=== PATIENT | male | born 2000 | race Caucasian/White ===

== ENCOUNTER 2021-02-07 00:15 | Emergency (ER) | payer OTHER ==
[~2021-02-07] VITALS: Ht 178 cm; Wt 75.0 kg
[2021-02-07 00:29] VITALS: BP 140/90
[2021-02-07] MEDS ORDERED: DEXM5TAB3 (00:29)
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
== END 2021-02-07 01:38 | disposition home or self-care (01) ==
LOC: ER 00:19
DX: S01.81XA Laceration without foreign body of other part of head, initial encounter (principal); S60.511A Abrasion of right hand, initial encounter; S60.512A Abrasion of left hand, initial encounter; V00.841A Fall from standing electric scooter, initial encounter
CPT/HCPCS: 12011

== ENCOUNTER 2021-03-05 23:54 | Emergency (ER) | payer OTHER ==
[~2021-03-05] VITALS: Ht 177.8 cm; Wt 75.0 kg
[~2021-03-05 23:54] MED LIST: DEXM5TAB3
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
[2021-03-06] MEDS ORDERED: HYDROcodone/APAP 7.5 MG/325 MG (LORTAB, LORCET PLUS) TABLET PO ONE (02:15)
[2021-03-06] MEDS ORDERED: HYDR-87 PO (02:23)
[2021-03-06 03:13] VITALS: BP 122/70
--- NOTE | 2021-03-06 06:43 | Diagnostic Imaging Report ---
HISTORY: Bimalleolar fracture TECHNIQUE: 3 views of the right foot COMPARISON: None FINDINGS: There are fractures of the distal tibia and fibula, better seen on concurrent radiographs. There is a subtle nondisplaced fracture of the right 4th metatarsal head with slight lateral angulation.. Alignment otherwise appears normal. Joint spaces are preserved. IMPRESSION: 1. Nondisplaced fracture of the right 4th metatarsal head. 2. Fractures of the distal right tibia and fibula are described on concurrent radiographs. Dictated by: Dictated on workstation # [id number]
--- NOTE | 2021-03-06 06:45 | Diagnostic Imaging Report ---
HISTORY: Right ankle pain COMPARISON: None FINDINGS: Three views of the right ankle demonstrate a moderately posteriorly displaced slightly medially angulated oblique fracture of the distal right fibula diametaphysis, with the distal edge of the fracture located about 3.4 cm proximal to the tibiotalar joint. There is a transverse fracture of the medial malleolus with mild anterior and lateral displacement. There is mild lateral subluxation of the talus relative to the tibia with widening of the medial clear space by 9 mm. A posterior malleolus fracture is not seen. There is soft tissue swelling about the right ankle, medial more than lateral. There is a small tibiotalar joint effusion. IMPRESSION: 1. Displaced fractures of the right medial malleolus and the distal right fibula diaphysis, with mild lateral subluxation at the tibiotalar joint. 2. Small tibiotalar joint effusion with surrounding soft tissue edema. Dictated by: Dictated on workstation # [id number]
--- NOTE | 2021-03-06 06:46 | Diagnostic Imaging Report ---
HISTORY: Right lower leg pain, bimalleolar fracture TECHNIQUE: 2 views of the right tibia/fibula. COMPARISON: None FINDINGS: Fractures of the distal right tibia and fibula are described on the ankle radiographs. No fracture is seen of the proximal tibia and fibula. Alignment at the knee appears to be normal. IMPRESSION: 1. Fractures of the distal right tibia and fibula are described on the concurrent ankle radiographs. No proximal tibia/fibula fractures are seen. Dictated by: Dictated on workstation # [id number]
== END 2021-03-06 03:13 | disposition home or self-care (01) ==
LOC: EDUNIT# 23:54 → ER 23:57
DX: S82.841A Displaced bimalleolar fracture of right lower leg, initial encounter for closed fracture (principal); F17.290 Nicotine dependence, other tobacco product, uncomplicated; X50.1XXA Overexertion from prolonged static or awkward postures, initial encounter
CPT/HCPCS: 29515; 73590; 73610; 73630

== ENCOUNTER → 2021-08-22 | Outpatient (CLI) | payer OTHER ==
[~2021-08-22] MED LIST changes: +HYDR-87 PO
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
== END ==
LOC: RAD 16:06
PROVIDERS: ATTEND Physician Assistant
DX: S09.8XXA Other specified injuries of head, initial encounter (principal); S06.0X0A Concussion without loss of consciousness, initial encounter; S00.12XA Contusion of left eyelid and periocular area, initial encounter; F41.9 Anxiety disorder, unspecified; G44.89 Other headache syndrome; W19.XXXA Unspecified fall, initial encounter
CPT/HCPCS: 70450; 70486

== ENCOUNTER 2023-02-03 21:55 | Emergency (ER) | payer OTHER ==
[~2023-02-03 21:55] MED LIST changes: -DEXM5TAB3; +DEXM5TAB5; +HYDR-4085 PO; -HYDR-87 PO
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
[2023-02-03] MEDS ORDERED: predniSONE 20 MG TAB PO ONE (22:15)
[2023-02-03] MEDS ORDERED: diphenhydrAMINE 25 MG TAB (BENADRYL) PO ONE (22:15)
[2023-02-03] MEDS ORDERED: FAMOTIDINE 20 MG (PEPCID) TABLET PO ONE (22:15)
[2023-02-03] MEDS ORDERED: PRD50T PO (22:29)
[2023-02-03] MEDS ORDERED: DIPH25CA79 PO (22:29)
[2023-02-03 22:35] VITALS: BP 144/85
== END 2023-02-03 22:35 | disposition home or self-care (01) ==
LOC: EDUNIT# 21:55 → ER 21:58
DX: R23.2 Flushing (principal)
CPT/HCPCS: 99283